=== PATIENT | female | born 1960 | race Caucasian/White ===

== ENCOUNTER 2025-05-09 10:30 | Inpatient (IN) | payer MEDICAID ==
[~2025-05-09] VITALS: Ht 170.2 cm; Wt 104.9 kg
--- NOTE | 2025-05-09 11:59 | ELECTROCARDIOGRAPH REPORT ---
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 Luis Mackey Measurements Intervals Fowler Rate: 91 P: 102 AK: 195 QRS: 45 QRSD: 162 T: 200 QT: 404 QTc: 498 Interpretive Statements Sinus rhythm IVCD, consider atypical LBBB Baseline wander in lead(s) V3,V4 Electronically Signed On 05-09-2025 18:50:[address] Luis Mackey Please click the below link to view image of tracing.
[2025-05-09 12:35] LABS: MEAN PLATELET VOLUME 8.0 FL (7.4-10.4); RED CELL DISTRIBUTION WIDTH 14.1 % (11.5-14.5)
[2025-05-09 12:42] LABS: CREATININE 1.21 MG/DL (0.40-0.90); TOTAL CARBON DIOXIDE 26.1 MMOL/L (24-32); eCRCL 46 ML/MIN; eGFR 45 ML/MIN
[2025-05-09 12:45] LABS: INR 1.4 INR
--- NOTE | 2025-05-09 12:57 | Physician Documentation ---
History of Present Illness ~ Chief Complaint: Leg Pain Stated Complaint: LEG PAIN Time Seen by MD: 11:21 OK to notify your PCP?: Yes Primary Medical Doctor: Dr. Ansari, Dr. Hutchison Source: patient Mode of Arrival: POV Exam Limitations: no limitations HPI 64-year-old female who is here due to right lower leg pain and redness x7days, symptoms getting progressively worse. She was seen in [facility] Emergency room yesterday for these symptoms and had u/s which was negative for DVT. Patient is on Coumadin due to a history of a prior DVT. Patient reports her only other medical history is hypertension. Denies diabetes, lymphedema. Patient reports pain in right leg makes it difficult for her to walk. Any pressure to leg causes pain. Denies any range of motion deficits of right leg. No fever, chills, chest pain, shortness of breath. Medication Reconciliation Allergies: Coded Allergies: Sulfa (Sulfonamide Antibiotics) (Unverified Allergy, 04/26/10) Past Medical History Past Medical History: Hypertension, Anemia, Anxiety Past Surgical History: gastric bypass Alcohol Use: None Drug Use: none Review of Systems All Other Systems at this time: Reviewed and Negative Physical Exam Vital Signs: Temperature: 98.6, Source: Oral, Heart Rate: 84, Respiratory Rate: 16, BP: 132/72, Pulse Oximetry: 100, Weight: 104.900 Oxygen Flow Rate: 0 Physical Exam GENERAL: Alert, no acute distress. HEENT: NCAT, EOMI, PERRL, normal oropharynx, moist oral mucosa. NECK: Supple, trachea midline. CARDIAC: Regular rate and rhythm, no murmurs, rubs, or gallops. Equal distal pulses. Cap refill less than 2 seconds. RESPIRATORY: Equal breath sounds, clear to auscultation bilaterally, no respiratory distress. MUSCULOSKELETAL: Normal range of motion. NEUROLOGICAL: Awake, alert, and oriented x 3. SKIN: RIGHT LEG CIRCUMFERENTIAL ERYTHEMA AND EDEMA FROM TIBIAL TUBEROSITY DOWN TO FOOT, ERYTHEMA IS CIRCUMFERENTIAL. THERE IS SMALL TRAIL OF ERYTHEMA THAT APPEARS TO BE SPREADING UPWARDS STARTING AT MEDIAL KNEE TO GROIN. AREA OF ERYTHEMA IS EXTREMELY TENDER TO PALPITATION. PSYCH: Alert and appropriate. Affect congruent with mood. Speech is clear. Good eye contact. Progress Results/Orders Results/Orders Orders - ASHLEY MALIK Urinalysis, Cult If Indicated (05/09/25 11:34) Culture Blood (05/09/25 11:34) Procalcitonin (05/09/25 11:34) Lacticsepsis (05/09/25 11:34) Completed Orders - ASHLEY MALIK Electrocardiogram (05/09/25 11:34) Cbc/Diff (05/09/25 11:34) MG (05/09/25 11:34) BMP (05/09/25 11:34) Pt Inr (05/09/25 11:34) Vital Signs 05/09/25 05/09/25 10:36 12:10 Temp 98.6 Pulse 96 84 Resp 15 16 B/P (MAP) 151/75 132/72 (92) Pulse Ox 98 100 O2 Flow Rate 0 Laboratory Tests Test 05/09/25 12:09 White Blood Count 10.1 Red Blood Count 4.04 L Hemoglobin 12.1 Hematocrit 35.7 Mean Corpuscular Volume 88.3 Mean Corpuscular Hemoglobin 29.9 Mean Corpuscular Hemoglobin Concent 33.8 Red Cell Distribution Width 14.1 Platelet Count 296 Mean Platelet Volume 8.0 Neutrophils (%) (Auto) 83.1 H Lymphocytes (%) (Auto) 4.7 L Monocytes (%) (Auto) 10.8 Eosinophils (%) (Auto) 0.6 Basophils (%) (Auto) 0.8 Neutrophils # (Auto) 8.4 H Lymphocytes # (Auto) 0.5 L Monocytes # (Auto) 1.1 H Eosinophils # (Auto) 0.1 Basophils # (Auto) 0.1 CBC Comment Prothrombin Time 14.0 H INR International Normalized Ratio 1.4 Coagulation Comments Sodium Level 138 Potassium Level 3.1 L Chloride Level 102 Carbon Dioxide Level 26.1 Anion Gap 10 Blood Urea Nitrogen 25 H Creatinine 1.21 H Estimated GFR/1.73 m2 45 BUN/Creatinine Ratio 20.7 H Glucose Level 112 H Calcium Level 8.6 Magnesium Level 2.0 Albumin 2.1 L Chemistry Comments Medical Decision Making General Diff Dx:Considerations: Include: Abrasion, Contusion, Fracture, Hematoma, Laceration, Malunion, Neurovascular injury, Open fracture, Sprain, Ulcer, Other (COMPARTMENT SYNDROME UNLIKELY GIVEN NORMAL PULSES, NO SNESORY MOTOR DEFICITS AND NO TENSE COMPARTMENTS ) Additional Comment I REVIEWED RECORDS FROM [facility] YESTERDAY-VENOUS LE U/S NEGATIVE FOR DVT AND THUS I DID NOT REPEAT U/S TODAY Departure Time of Disposition: 12:54 Admitted to Inpatient Unit: to hospitalist Impression: Primary Impression: Cellulitis and abscess of right leg Additional Impressions: Subtherapeutic anticoagulation History of DVT (deep vein thrombosis) Condition: Fair Referrals: NO PRIMARY CARE PROVIDER (PCP) Education Educated: Patient Educated regarding: diagnosis, treatment, need for follow up Signature Scribe Signature: x Attestation: ASHLEY Rodriguez May 09, 2025 12:57
[2025-05-09] MEDS ORDERED: mag hydrox/Alum hydrox/simeth 30ml oral suspension PO PRN (14:20)
[2025-05-09] MEDS ORDERED: potassium Cl 20 mEq SR tablet PO PRN (14:20)
[2025-05-09] MEDS ORDERED: magnesium Cl slow-release 64mg tablet PO PRN (14:20)
[2025-05-09] MEDS ORDERED: magnesium sulf-water 4G/100mL 100 ML IV PRN (14:20)
[2025-05-09] MEDS ORDERED: ondansetron/PF 4mg/2ml inj IV PRN (14:20)
[2025-05-09] MEDS ORDERED: magnesium sulf-water 2g/50mL 50 ML IV PRN (14:20)
[2025-05-09] MEDS ORDERED: potassium Cl 40MEQ/1/2NS 520ml 520 ML IV PRN (14:20)
[2025-05-09 14:32] LABS: LEUKOCYTE ESTERASE ,URINE NEGATIVE (Neg); NITRITES, URINE NEGATIVE (Neg); OCCULT BLOOD,URINE MODERATE (Neg)
[2025-05-09] MEDS ORDERED: morphine 4 MG/ML inj SYRINge IV PRN ×2 (14:34)
[2025-05-09 14:46] LABS: UA COLLECTION TYPE CLN CATCH MIDSTREAM
[2025-05-09 14:48] LABS: SQUAMOUS EPITHELIAL CELL,UR FEW /LPF (FEW)
--- NOTE | 2025-05-09 15:16 | HISTORY AND PHYSICAL-Residence ---
History & Physical Providers to CC Resident Creating Document: BABATUNDE MUELLER, RES ~ History of Present Illness Primary Medical Doctor: Dr. Ansari, Dr. Hutchison Reason for Admit\Complaint: Cellulitis of lower limb History of Present Illness 64-year-old female came to the ED with complaints of right lower leg pain and redness since seven days. symptoms were progressively increasing and got to a point where she was unable to walk today due to unbearable pain. Patient denies having any trauma, needle pricks or any other injury. Patient says this is the 1st episode that she is having,never had any symptoms like this before .Patient denies any other complaints of fever, chills, sweating, nausea vomiting. She was seen in [facility] Emergency room yesterday for these symptoms and had an ultrasound which was negative for DVT. Patient is on Coumadin due to a history of a prior DVT. Allergies: Coded Allergies: Sulfa (Sulfonamide Antibiotics) (Unverified Allergy, Unknown, 05/09/25) Home Medications Home Medications Active Past Medical History Past Medical History Hypertension Anemia Anxiety Past Surgical History Surgical History Comment Gastric bypass surgery Hernia repair Past Social History Social History Comment Patient quit smoking years ago, would previously smoke once in a while Drinks alcohol socially No illicit drug use Patient lives at home by herself Smoking: Non-Smoker Alcohol Use: None Drug Use: None ROS All Other Systems: Reviewed and Negative ROS Constitutional: Reports:no fever Eyes: Reports: no symptoms reported ENT: Reports: no symptoms reported Respiratory: Reports: no symptoms reported Cardiovascular: Reports: no symptoms reported Gastrointestinal: Reports: no symptoms reported Genitourinary: Reports: no symptoms reported Female Genitalia: Reports: no symptoms reported Neurological: Reports: no symptoms reported Musculoskeletal: Reports: pain, swelling Integumentary: Reports: No symptoms reported Allergic/Immunologic: Reports: no symptoms reported Hematologic/Lymphatic: Reports: no symptoms reported Endocrine: Reports: no symptoms reported Psychiatric: Reports: No symptoms reported Exam Vitals: Vital Signs Date Time Temp Pulse Resp B/P (MAP) Pulse Ox O2 Delivery O2 Flow Rate FiO2 05/09/25 13:41 14 05/09/25 13:40 85 95 0 05/09/25 10:36 98.6 General: General: Awake and Alert, no acute distress. HEENT: Conjunctiva pink, Sclera clear, Mucus Membranes moist. Resp: Unlabored. Lungs clear to auscultation bilaterally. Heart: S1-S2 heard, regular rhythm, no murmurs heard Abdomen: Soft and non tender no organomegaly Extremities: Warmth, erythema and tenderness noted in right lower extremity. No lymphadenopathy noted. No ulcers, open wounds, draining pus noted Skin: Warm and Dry. MENTAL HEALTH AIDE: No focal neurological deficits present Diagnostic Data Last Recorded Lab Results: 05/09/25 1209 05/09/25 1209 Diagnostic Data: Laboratory Tests Test 05/09/25 12:09 Prothrombin Time 14.0 SECONDS (9.0-12.0) H INR International Normalized Ratio 1.4 INR Coagulation Comments Advance Care Planning Advanced Care plannin - 30 Minutes (Full code) Additional Plan Right lower limb pain Right leg Cellulitis Patient does not meet criteria for SIRS Vitals are stable WBC count normal- 10.1, procal increased- 0.72 Lactic acid normal- 1.1 ESR ordered follow up Patient started on ancef 2gm q8. We will continue to monitor her. Hypokalemia- K- 3.1 Patient on potassium replacement therapy. Acute kidney injury- Creatinine- 1.21, BUN-25 Patient on fluids NS 100 cc/hours. Urine lytes ordered follow up. Code status: Full code GI prophylaxis: none Pain management: Morphine Diet/nutrition: Regular Prognosis: Guarded Babatunde Mueller PGY-1 Date of Service: May 09, 2025 Billing Provider: BRADLEY MCCOY MD Common Visit Codes: [id number] INP/OBS CARE (HIGH) Secondary Visit Codes: [id number] CARE PLAN 30 MINUTES BABATUNDE MUELLER, RES May 09, 2025 15:16 BRADLEY MCCOY MD May 10, 2025 21:45
[2025-05-09] MEDS: normal saline 1000ml 1,000 ML IV SCH (16:54)
[2025-05-09] MEDS: vancomycin/NS 1 GM ADD-VANTAGE 250 ML IV SCH (16:54)
[2025-05-09] MEDS: CefTRIAXone/D5W-Rocephin 1gm 50 ML IV SCH (16:54)
[2025-05-09 17:08] VITALS: RESP 18; O2SAT 98
[2025-05-09 17:18] VITALS: BP 132/71; PULSE 78; RESP 18; TEMP 98.1; O2SAT 98
[2025-05-09] MEDS ORDERED: ROPI1TAB47 PO (17:27)
[2025-05-09] MEDS ORDERED: HYDR25TA4 PO (17:27)
[2025-05-09] MEDS ORDERED: AMLO10TA13 PO (17:27)
[2025-05-09] MEDS ORDERED: LOSA50TA64 PO (17:27)
[2025-05-09] MEDS ORDERED: DULO60CA65 PO (17:27)
[2025-05-09] MEDS ORDERED: WARF3TAB56 PO (17:27)
[2025-05-09] MEDS: potassium Cl 20 mEq SR tablet PO PRN (17:33)
[2025-05-09 20:00] VITALS: RESP 18; O2SAT 96
[2025-05-09] MEDS ORDERED: heparin, porcine 5000 units/ml vial SQ SCH (20:00)
[2025-05-09] MEDS: K and/or MAG REPLACEMENT MC SCH (20:00)
[2025-05-09] MEDS: ceFAZolin 2gm/dext,iso 50mL 50 ML IV SCH (20:51)
[2025-05-09] MEDS: docusate sod 100mg capsule PO SCH (20:56)
[2025-05-09] MEDS: warfarin 5mg tablet PO ONE (20:57)
[2025-05-09] MEDS ORDERED: warfarin 5mg tablet PO ONE (21:00)
[2025-05-09 22:00] VITALS: BP 132/74; PULSE 81; RESP 20; TEMP 98.1; O2SAT 98
[2025-05-09] MEDS: HYDROcodone/acetaminophen 5mg/325mg tablet PO PRN (23:15)
[2025-05-10 05:00] VITALS: BP 136/73; PULSE 68; RESP 16; TEMP 98.1; O2SAT 95
[2025-05-10 05:53] LABS: MEAN PLATELET VOLUME 8.0 FL (7.4-10.4); RED CELL DISTRIBUTION WIDTH 14.5 % (11.5-14.5)
[2025-05-10 06:05] LABS: INR 1.7 INR
[2025-05-10 06:16] LABS: CHOL/HDL RATIO 4.4 (0.00-4.99); CREATININE 1.20 MG/DL (0.40-0.90); LDL CHOLESTEROL 67 MG/DL (50-100); TOTAL CARBON DIOXIDE 26.6 MMOL/L (24-32); eCRCL 47 ML/MIN; eGFR 45 ML/MIN
[2025-05-10] MEDS: duloxetine 30mg CAPSULE.DR PO SCH (08:04)
[2025-05-10 09:52] VITALS: RESP 18; O2SAT 97
[2025-05-10 11:00] VITALS: BP 129/67; PULSE 90; RESP 16; TEMP 98.9; O2SAT 95
--- NOTE | 2025-05-10 13:42 | PROGRESS NOTE- Residence ---
Progress Note - Resident Providers to CC Resident Creating Document: CARLOSCYNTHIAALVAREZ TobarI, RES ~ Antibiotic Timeout Antibiotic Ordered?: Yes Subjective Patient was seen and examined at the bedside today. Patient says that she feels well, and is able to walk around. No acute events reported overnight. Objective Vital Signs Date Time Temp Pulse Resp B/P (MAP) Pulse Ox O2 Delivery O2 Flow Rate FiO2 05/10/25 11:53 18 05/10/25 11:00 98.9 90 129/67 (87) 95 Room Air 05/10/25 09:52 0.0 Result Diagram: 05/10/2551205/10/25512 General: Awake and Alert, no acute distress. HEENT: Conjunctiva pink, Sclera clear, Mucus Membranes moist. Resp: Unlabored. Lungs clear to auscultation bilaterally. Heart: S1-S2 heard, regular rhythm, no murmurs heard Abdomen: Soft and non tender no organomegaly Extremities: Warmth, erythema and tenderness noted in right lower extremity. No lymphadenopathy noted. No ulcers, open wounds, draining pus noted Skin: Warm and Dry. BEVERAGE SERVER: No focal neurological deficits present Coagulation Studies Laboratory Tests Test 05/10/25 05:13 Prothrombin Time 17.0 SECONDS (9.0-12.0) H INR International Normalized Ratio 1.7 INR Coagulation Comments Plan Plan Right lower limb pain Right leg Cellulitis Patient does not meet criteria for SIRS Vitals are stable WBC count normal, procal increased- 0.72 Lactic acid normal- 1.1, ESR- 71 Patient started on ancef 2gm q8. We will continue to monitor her. Hypokalemia resolved- K- 3.7 We will keep monitoring her potassium levels. Acute kidney injury- Creatinine- 1.20, BUN-21 Patient on fluids NS 100 cc/hours. Urine lytes ordered follow up. Code status: Full code GI prophylaxis: none Pain management: Morphine Diet/nutrition: Regular Prognosis: Guarded Babatunde Messerjoao PGY-1 Date of Service: May 10, 2025 Billing Provider: BRADLEY MCCOY MD Common Visit Codes: [id number] INP/OBS CARE(HIGH) JERARDOBABATUNDE, RES May 10, 2025 13:42 BRADLEY MCCOY MD May 10, 2025 21:46
[2025-05-10] MEDS: magnesium hydroxide 30ml (MOM) UD suspension PO PRN (18:06)
[2025-05-10 19:10] VITALS: BP 140/64; PULSE 91; RESP 18; TEMP 97.6; O2SAT 94; O2SAT 95
[2025-05-10] MEDS: warfarin 7.5mg tablet PO ONE (22:01)
[2025-05-11] MEDS: VANCOMYCIN LEVEL IV ONE (03:30)
[2025-05-11 05:00] VITALS: BP 114/71; PULSE 90; RESP 20; TEMP 98.5; O2SAT 97
[2025-05-11 06:08] LABS: MEAN PLATELET VOLUME 7.8 FL (7.4-10.4); RED CELL DISTRIBUTION WIDTH 14.3 % (11.5-14.5)
[2025-05-11 06:17] LABS: INR 3.5 INR
[2025-05-11 06:21] LABS: CREATININE 0.83 MG/DL (0.40-0.90); TOTAL CARBON DIOXIDE 26.9 MMOL/L (24-32); eCRCL 67 ML/MIN; eGFR 69 ML/MIN
[2025-05-11 09:33] VITALS: RESP 20; O2SAT 97
[2025-05-11 10:53] VITALS: BP 142/72; PULSE 98; RESP 15; TEMP 97.4; O2SAT 94
--- NOTE | 2025-05-11 14:19 | PROGRESS NOTE- Residence ---
Progress Note - Resident Providers to CC Resident Creating Document: RAYMUNDO BOLANOS RES ~ Antibiotic Timeout Antibiotic Ordered?: Yes Subjective Patient was seen and examined at bedside, she reports pain in her right leg 5/10 and she reports that she is feeling much better since admission In addition to that she she is taking warfarin for blood clots and she thinks that she had Pulmonary embolism once. Objective Vital Signs Date Time Temp Pulse Resp B/P (MAP) Pulse Ox O2 Delivery O2 Flow Rate FiO2 05/11/25 10:53 97.4 98 15 142/72 (95) 94 Room Air 05/11/25 09:33 0.0 21 Result Diagram: 05/11/2552505/11/25525 General: awake, alert oriented to place, time, and person HEENT: No pallor present, no icterus, moist mucous membranes Neck: No masses and tenderness Resp: Unlabored. Lungs clear to auscultation bilaterally. Chest: Normal expansion. Cardiovascular: Regular Rate and rhythm, normal S1 and S2 without murmur, rub or gallop Abdomen: Soft and non tender in epigastrium, no organomegaly, no guarding and rigidity, bowel sounds present Neuro: No focal weakness in the upper and lower limb muscles, power of the muscles 5/5 bilateral upper and lower extremities, normal reflexes bilaterally. Cranial nerves intact Right Extremity: swelling noted in right lower leg ,erythema and tender to touch. Left Lower Extremity: No cyanosis ,edema or erythema Skin: Warm and Dry. Psych: Normal affect Coagulation Studies Laboratory Tests Test 05/11/25 05:26 Prothrombin Time 31.4 SECONDS (9.0-12.0) H INR International Normalized Ratio 3.5 INR # Coagulation Comments Advance Care Planning Advanced Care plannin - 30 Minutes Plan Plan This is a 64-year-old female with past medical history of hypertension presented to ER with complain of right lower leg pain in view of that we admitted the patient for possible cellulitis. Right Lower Leg Cellulitis Patient failed outpatient antibiotic therapy Patient presented with complain of right lower leg pain, Patient failed outpatient antibiotic therapy WBC count normal, ESR and Procal high Started the patient on Ancef (day 3) Follow up with repeat ESR and CRP History of DVT/PE Patient reports history of DVT and PE Reports family history of DVT Wells score is 3, in view of that follow up with D-dimer Continue warfarin 3 mg as patient reports she has been taking it since 2003 INR within therapeutic range. Follow up with U/S legs Hypokalemia Resolved CARL resolved Hypertension Continue home medication losartan and HCTZ Restless legs Syndrome Continue ropinirole Normocytic Anemia, Anaemia of Chronic Disease Hgb: 11.2 Hct: 33.7 MCV normal Follow up with iron panel Disposition: We will continue to monitor patient, Awaiting PT eval. Code status: Full code GI prophylaxis: none Pain management: Morphine Diet/nutrition: Regular DVT prophylaxis: Warfarin 3 mg Reviewed and discussed with PGY3. Raymundo Bolanos PGY1 IM Addendum h/o dvt on coumadin, inr supratherapeutic, hold coumadin, no bleeding Date of Service: May 11, 2025 Billing Provider: BRADLEY MCCOY MD Common Visit Codes: [id number] INP/OBS CARE(HIGH) RAYMUNDO BOLANOS, RES May 11, 2025 14:19 BRADLEY MCCOY MD May 11, 2025 21:48
[2025-05-11 16:59] LABS: INR 5.4 INR
[2025-05-11 17:15] LABS: % IRON SATURATION 11 % (11-46)
[2025-05-11 18:00] VITALS: BP 145/76; PULSE 94; RESP 18; TEMP 98.3; O2SAT 95
[2025-05-11 20:31] LABS: INR 6.4 INR
[2025-05-11] MEDS ORDERED: warfarin 3mg tablet PO SCH (21:00)
[2025-05-11 22:00] VITALS: BP 151/78; PULSE 88; RESP 19; TEMP 98.5; O2SAT 94
[2025-05-12 04:52] LABS: MEAN PLATELET VOLUME 7.3 FL (7.4-10.4); RED CELL DISTRIBUTION WIDTH 13.7 % (11.5-14.5)
[2025-05-12 05:01] LABS: CREATININE 0.90 MG/DL (0.40-0.90); TOTAL CARBON DIOXIDE 28.5 MMOL/L (24-32); eCRCL 62 ML/MIN; eGFR 63 ML/MIN
[2025-05-12 05:09] LABS: INR 6.9 INR
[2025-05-12 06:00] VITALS: BP 149/76; PULSE 89; RESP 19; TEMP 98; O2SAT 96
[2025-05-12 10:00] VITALS: BP 152/84; PULSE 91; RESP 19; TEMP 98.1; O2SAT 93
[2025-05-12] MEDS ORDERED: AMOX-580 PO (11:52)
[2025-05-12] MEDS ORDERED: HYDR-3965 PO (11:52)
--- NOTE | 2025-05-12 16:04 | DISCHARGE SUMMARY-Residence ---
Discharge Summary Providers to CC Resident Creating Document: LUIS MIGUELSASKIA FONSECA ~ Discharge Summary Admission Diagnosis: Leg Cellulitis Hospital Course DATE OF ADMISSION: 05/09/25 DATE OF DISCHARGE: 05/12/25 Discharge Diagnosis\Comment: Right Lower Leg Cellulitis History of DVT/PE Hypokalemia Resolved CARL resolved Hypertension Restless legs Syndrome Normocytic Anemia, Anaemia of Chronic Disease Operations\Procedures: none Consultants: none Complications: none Condition on DC: Stable New Medications: Amox Tr/Potassium Clavulanate 875/125 MG (Augmentin 875/125 MG) 875 Mg-125 Mg Tablet 1 TAB PO BID, #14 TAB Hydrocodone Bit/Acetaminophen 5/325 MG ([place] 5/325 MG) 5 Mg/325 Mg Tablet 1 TAB PO Q6H PRN for pain, #14 TAB Continued Medications: Amlodipine Besylate (Amlodipine Besylate) 10 Mg Tablet 1 TAB PO DAILY Duloxetine HCl (Duloxetine HCl) 60 Mg Capsule.dr 1 CAP PO DAILY Losartan Potassium (Losartan Potassium) 50 Mg Tablet 1 TAB PO DAILY Ropinirole Hcl (Ropinirole Hcl) 1 Mg Tablet 1 TAB PO HS Discontinued Medications: Hydrochlorothiazide (Hydrochlorothiazide) 25 Mg Tablet 1 TAB PO DAILY Warfarin Sodium (Warfarin Sodium) 3 Mg Tablet 3-4 TAB PO DAILY Discharge Summary: HPI as Per Admitting Physician 64-year-old female came to the ED with complaints of right lower leg pain and redness since seven days. symptoms were progressively increasing and got to a point where she was unable to walk today due to unbearable pain. Patient denies having any trauma, needle pricks or any other injury. Patient says this is the 1st episode that she is having,never had any symptoms like this before .Patient denies any other complaints of fever, chills, sweating, nausea vomiting. She was seen in [facility] Emergency room yesterday for these symptoms and had an ultrasound which was negative for DVT. Patient is on Coumadin due to a history of a prior DVT. Hospital Course This is a 64-year-old female with past medical history of DVT, PE presented to ER with complain of right lower leg pain and redness. Patient WBC count were normal however ESR and Procal were high, in view of that started patient on An cef for possible cellulitis. During hospitalization patient also received one dose of Rocephin and vancomycin and she was also started on IV fluids NS 100 mL/hour. Patient was recently seen in [facility] Emergency room for these symptoms where she had ultrasound which was negative for DVT, patient Wells criteria for DVT was 3, in view of that ordered D-dimer which was 1.93, US leg was also ordered however patient refused US of legs. Patient denied any shortness of breath, respiratory rate was normal. In addition to that patient also had history of DVT and PE for which she was taking warfarin since 2003, in view of that started patient on warfarin, however later it was discontinued later because of supratherapeutic INR. Apart from that patient was also treated for his chronic condition restless legs syndrome with this ropinirole, hypertension with lisinopril and hydrochlorothiazide. Patient also had CARL had which was resolved with IV fluids and hypokalemia which was treated as per potassium protocol. Patient also had anemia chronic disease. Patient was medically stable for discharge and was advised to CALL YOUR PCP to schedule an appointment THIS WEEK to recheck your INR and adjust your dose of coumadin. Your most recent value was 6.9 on 05/12/25. Stop Warfarin until you see your PCP in 1 Week and repeat INR in 2-3 days. Physical examination General: awake, alert oriented to place, time, and person HEENT: No pallor present, no icterus, moist mucous membranes Neck: No masses and tenderness Resp: Unlabored. Lungs clear to auscultation bilaterally. Chest: Normal expansion. Cardiovascular: Regular Rate and rhythm, normal S1 and S2 without murmur, rub or gallop Abdomen: Soft and non tender in epigastrium, no organomegaly, no guarding and rigidity, bowel sounds present Neuro: No focal weakness in the upper and lower limb muscles, power of the muscles 5/5 bilateral upper and lower extremities, normal reflexes bilaterally. Cranial nerves intact Right Extremity: swelling improved in right lower leg ,erythema and non tender to touch Left Lower Extremity: No cyanosis ,edema or erythema Skin: Warm and Dry. Psych: Normal affect Laboratory Tests Test 05/11/25 05:26 05/11/25 15:49 05/11/25 19:41 05/12/25 04:34 White Blood Count 7.4 X10'3 8.7 X10'3 Red Blood Count 3.79 X10'6 3.75 X10'6 Hemoglobin 11.2 g/dl 11.3 g/dl Hematocrit 33.7 % 33.2 % Mean Corpuscular Volume 88.7 FL 88.6 FL Mean Corpuscular Hemoglobin 29.5 PG 30.2 PG Mean Corpuscular Hemoglobin Concent 33.2 g/dL 34.1 g/dL Red Cell Distribution Width 14.3 % 13.7 % Platelet Count 345 X10'3 385 X10'3 Mean Platelet Volume 7.8 FL 7.3 FL Neutrophils (%) (Auto) 84.1 % 85.6 % Lymphocytes (%) (Auto) 6.3 % 5.8 % Monocytes (%) (Auto) 8.2 % 7.1 % Eosinophils (%) (Auto) 0.7 % 0.8 % Basophils (%) (Auto) 0.7 % 0.7 % Neutrophils # (Auto) 6.2 X10'3 7.4 X10'3 Lymphocytes # (Auto) 0.5 X10'3 0.5 X10'3 Monocytes # (Auto) 0.6 X10'3 0.6 X10'3 Eosinophils # (Auto) 0.1 X10'3 0.1 X10'3 Basophils # (Auto) 0.1 X10'3 0.1 X10'3 CBC Comment Prothrombin Time 31.4 SECONDS 47.1 SECONDS 54.7 SECONDS 58.8 SECONDS INR International Normalized Ratio 3.5 INR 5.4 INR 6.4 INR 6.9 INR Coagulation Comments Sodium Level 135 MMOL/L 135 MMOL/L Potassium Level 3.5 MMOL/L 3.9 MMOL/L Chloride Level 103 MMOL/L 100 MMOL/L Carbon Dioxide Level 26.9 MMOL/L 28.5 MMOL/L Anion Gap 5 7 Blood Urea Nitrogen 17 MG/DL 12 MG/DL Creatinine 0.83 MG/DL 0.90 MG/DL Estimated GFR/1.73 m2 69 ML/MIN 63 ML/MIN BUN/Creatinine Ratio 20.5 13.3 Glucose Level 113 MG/DL 105 MG/DL Calcium Level 8.0 MG/DL 8.1 MG/DL Magnesium Level 2.1 MG/DL 1.7 MG/DL Total Bilirubin 0.4 MG/DL 0.4 MG/DL Aspartate Amino Transf (AST/SGOT) 18 U/L 19 U/L Alanine Aminotransferase (ALT/SGPT) 10 U/L 14 U/L Alkaline Phosphatase 134 IU/L 179 IU/L Total Protein 6.0 G/DL 6.3 G/DL Albumin 1.6 G/DL 1.5 G/DL Globulin 4.4 G/DL 4.8 G/DL Albumin/Globulin Ratio 0.4 0.3 Chemistry Comments Erythrocyte Sedimentation Rate 82 MM/HR D-Dimer 1.93 MG/L FEU D-Dimer Comment Iron Level 14 UG/DL Total Iron Binding Capacity 122 UG/DL Percent Iron Saturation 11 % Ferritin 645 NG/ML C-Reactive Protein 28.53 MG/DL Discharge instruction CALL YOUR PCP to schedule an appointment THIS WEEK to recheck your INR and adjust your dose of coumadin. Your most recent value was 6.9 on 05/12/25. Stop Warfarin until you see your PCP in 1 Week and repeat INR in 2-3 days. Take your antibiotic as prescribed. Return to the ED should your symptoms persist or worsen. *Problems/Diagnosis: (1) Cellulitis and abscess of right leg Status: Resolved Total Time Spent on D/C: > 30 Minutes Date of Service: May 12, 2025 Billing Provider: BRADLEY MCCOY MD Common Visit Codes: [id number] DISCH DAY >30min RAYMUNDO BOLANOS, RES May 12, 2025 15:56 BRADLEY MCCOY MD May 12, 2025 21:43
== END 2025-05-12 13:25 | disposition home health service (06) | DRG 383 ==
LOC: ER 10:30 → ED HOLD 13:33 → SUR 3N 15:34
PROVIDERS: ADMIT Internal Medicine; ATTEND Internal Medicine
DX: L03.115 Cellulitis of right lower limb (principal); D63.8 Anemia in other chronic diseases classified elsewhere; N17.9 Acute kidney failure, unspecified; F41.9 Anxiety disorder, unspecified; G25.81 Restless legs syndrome; I10 Essential (primary) hypertension; L02.415 Cutaneous abscess of right lower limb; E87.6 Hypokalemia; Z86.718 Personal history of other venous thrombosis and embolism; Z98.84 Bariatric surgery status; Z79.01 Long term (current) use of anticoagulants; Z86.711 Personal history of pulmonary embolism; Z87.891 Personal history of nicotine dependence
CPT/HCPCS: 36415; 80048; 80053; 80061; 81001; 82728; 83036; 83540; 83550; 83605; 83735; 84145; 84466; 85025; 85379; 85610; 85651; 86140; 87040; 87081; 93005; 97116; 97161; 99285; G0378; J0690; J0696; J3373; J7030